=== PATIENT | female | born 1935 | race Caucasian/White ===

== ENCOUNTER 2022-12-27 18:19 | Observation (INO) ==
[2022-12-27 19:27] LABS: BASOPHILS % (AUTO) 0.2 % (0.0-3.0); EOSINOPHILS # (AUTO) 0.2 K/ul (0.0-0.7); EOSINOPHILS % (AUTO) 2.6 % (0.0-7.0); HEMATOCRIT 29.2 % (37.0-47.0); HEMOGLOBIN 8.9 g/dl (12.0-16.0); IMMATURE GRANULOCYTE % (AUTO) 0.5 % (0.0-5.0); LYMPHOCYTES # (AUTO) 1.1 K/uL (0.60-3.4); LYMPHOCYTES % (AUTO) 17.1 (10.0-50.0); MEAN CORPUSCULAR HEMOGLOBIN 26.6 pg (27.0-31.0); MEAN CORPUSCULAR HGB CONC 30.5 (31.8-35.4); MEAN CORPUSCULAR VOLUME 87.4 fl (81.0-99.0); MONOCYTES # (AUTO) 0.7 K/uL (0.4-2.0); MONOCYTES % (AUTO) 10.6 (0-10); NEUTROPHILS # (AUTO) 4.3 K/ul (2.0-6.9); PLATELET COUNT 126 10^3/uL (140-440); RDW COEFFICIENT OF VARIATION 16.7 % (11.6-14.8); RED BLOOD COUNT 3.34 10^6/ul (4.20-5.40); WHITE BLOOD COUNT 6.21 K/ul (4.6-10.2)
[2022-12-27 19:39] LABS: ALANINE AMINOTRANSFERASE 21.2 U/L (0-35); ALBUMIN 3.47 g/dL (3.5-5.0); ALKALINE PHOSPHATASE 81.3 U/L (53-141); ASPARTATE AMINO TRANSFERASE 33.2 U/L (14-36); BILIRUBIN,TOTAL 0.45 mg/dL (0.2-1.3); BLOOD UREA NITROGEN 22.4 mg/dL (7-17); CALCIUM 10.19 mg/dL (8.4-10.2); CARBON DIOXIDE 29.2 mmol/L (22-30.0); CHLORIDE 103.8 mmol/L (98-107); CREATININE 0.94 mg/dL (0.60-1.30); POTASSIUM 4.35 mmol/L (3.5-5.1); SODIUM 136.4 mmol/L (134.5-145); TOTAL PROTEIN 6.22 g/dL (6.3-8.2)
--- NOTE | 2022-12-27 19:42 | CT ---
EXAM: CT SCAN BRAIN WITHOUT CONTRAST HISTORY: Altered mental status COMPARISON: None. FINDINGS: Helically acquired axial images obtained from skull base to the convexities without contra st utilizing 5-mm collimation. Sagittal and coronal reconstructions were imaged and reviewed. The ventricles and CSF spaces are prominent compatible with age appropriate atrophy. There is mild periv entricular hypodensity noted compatible with chronic microvascular disease. There are no acute intra cranial findings. Atherosclerotic changes are seen involving the vertebral and cavernous internal ca rotid arteries. The visualized paranasal sinuses and mastoid air cells are clear. The calvarium is intact. IMPRESSION: No acute intracranial findings. All CT scans are performed using dose optimization techniques as appropriate to the performed exam an d include at least one of the following: Automated exposure control, adjustment of the mA and/or kV according t o size, and the use of iterative reconstruction technique.
[2022-12-27 19:50] LABS: TROPONIN I 0.042 ng/ml (0.0000-0.120)
[2022-12-27 20:20] LABS: BILIRUBIN,URINE Negative (NEGATIVE); CLARITY,URINE Clear (CLEAR); COLOR,URINE Yellow (YELLOW); GLUCOSE, URINE (UA) Negative (NEGATIVE); KETONES,URINE Negative (NEGATIVE); LEUKOCYTE ESTERASE ,URINE Trace (NEGATIVE); NITRITE,URINE Negative (NEGATIVE); PH,URINE 5.5 (5-9); PROTEIN,URINE Negative (NEGATIVE); URINE, BLOOD Negative (NEGATIVE); UROBILINOGEN,URINE 0.2 (0.2)
--- NOTE | 2022-12-27 20:20 | ED.PDOC ---
General ED Provider: Dr. RAHUL DUNCAN MD Chief Complaint: Altered Mental Status Stated Complaint: altered mental status Time Seen by Provider: 12/27/22 18:39 Mode of Arrival: Ambulance Information Source: [facility] Primary Care Provider: BEATRIZ KNOTT MD Nursing and Triage Documentation Reviewed and Agree: Yes Does patient meet sepsis criteria?: No System Inflammatory Response Syndrome: Not Applicable Sepsis Protocol: For patient's 13 years and over: Temp is 96.8 and below OR 101 and greater Pulse >90 BPM Resp >20/minute Acutely Altered Mental Status Are patient's symptoms suggestive of a new infection, such as: -Pneumonia -Skin, Soft Tissue -Endocarditis -UTI -Bone, Joint Infection -Implantable Device -Acute Abdominal Infection -Wound Infection -Meningitis -Blood Stream Catheter Infection -Unknown Neurological Complaint Exam Altered Mental Status Complaint/Exam Current Mental Status: Other Last Known Well: Few days ago Onset: Gradual Duration: 2 days Symptoms Are: Still present Eye Deviation Present: No Character: Reports Lethargy Aggravating: Reports None Alleviating: Reports None Associated Signs and Symptoms: Reports Weakness Review of Systems Review Of Systems Constitutional: Reports Other (unable to obtain) Neurological: Reports Other (lethargy) All Other Systems: Other (unable to obtain) [facility] Medical History (Updated 12/27/22 @ 23:47 by YURY HANNA, DEONTE) Arthritis M19.90 - Unspecified osteoarthritis, unspecified site (ICD-10) Hyperlipidemia E78.5 - Hyperlipidemia, unspecified (ICD-10) Lung cancer C34.90 - Malignant neoplasm of unspecified part of unspecified bronchus or lung (ICD-10) Pacemaker Z95.0 - Presence of cardiac pacemaker (ICD-10) Sick sinus syndrome I49.5 - Sick sinus syndrome (ICD-10) Family History (Updated 12/27/22 @ 23:47 by YURY HANNA RN) Other No known health problems Physical Exam Physical Exam Appearance: Reports Obese and Other (lethargic, opens eyes to verbal stimuli) Ill-appearing: Mild Pain Distress: None Eyes: Reports GRACIELA and EOMI ENT: Reports Ears normal and Nose normal Neck: Supple Respiratory: Reports Airway patent and Breath sounds diminished Cardiovascular: Reports RRR, Pulses normal and No rub GI/: Reports Soft, Nontender, No masses and Bowel sounds normal Musculoskeletal: Reports Other (muscle weakness) Skin: Reports Warm and Dry Neurological: Reports Other (unable to assess) Psychiatric: Reports Not Examined Interpretation EKG Interpretation Time of EKG #1: 18:32 Rate: Ashwin Rhythm: Other (Ventricular-paced rhythm) Ectopy: None EKG Interpretation By: ED Physician Critical Care Note Critical Care Note Total Critical Care Time (mins): 15 Course Course 12/28/22 04:58 12/28/22 04:58 Orders, Labs, Meds: Lab Review 12/27/22 12/27/22 12/27/22 18:39 19:20 19:57 WBC 6.21 RBC 3.34 L Hgb 8.9 L Hct 29.2 L MCV 87.4 MCH 26.6 L MCHC 30.5 L RDW Coeff of Aleksandr 16.7 H Plt Count 126 L Immature Gran % (Auto) 0.5 Neut % (Auto) 69.0 Lymph % (Auto) 17.1 [place] % (Auto) 10.6 H Eos % (Auto) 2.6 Baso % (Auto) 0.2 Neut # (Auto) 4.3 Lymph # (Auto) 1.1 [place] # (Auto) 0.7 Eos # (Auto) 0.2 Baso # (Auto) 0.0 Immature Gran # (Auto) 0.0 Sodium 136.4 Potassium 4.35 Chloride 103.8 Carbon Dioxide 29.2 Anion Gap 7.75 BUN 22.4 H Creatinine 0.94 Estimated GFR (MDRD) 56.00 BUN/Creatinine Ratio 23.82 Glucose 98.0 Calcium 10.19 Total Bilirubin 0.45 AST 33.2 ALT 21.2 Alkaline Phosphatase 81.3 Troponin I 0.042 Total Protein 6.22 L Albumin 3.47 L Globulin 2.75 Albumin/Globulin Ratio 1.26 TSH Urine Color Yellow Urine Clarity Clear Urine pH 5.5 Ur Specific [place] 1.015 Urine Protein Negative Urine Glucose (UA) Negative Urine Ketones Negative Urine Blood Negative Urine Nitrite Negative Urine Bilirubin Negative Urine Urobilinogen 0.2 Ur Leukocyte Esterase Trace H Urine Microscopic RBC 0-2 Urine Microscopic WBC 2-5 Ur Squamous Epith Cells 0-2 12/27/22 20:10 WBC RBC Hgb Hct MCV MCH MCHC RDW Coeff of Aleksandr Plt Count Immature Gran % (Auto) Neut % (Auto) Lymph % (Auto) [place] % (Auto) Eos % (Auto) Baso % (Auto) Neut # (Auto) Lymph # (Auto) [place] # (Auto) Eos # (Auto) Baso # (Auto) Immature Gran # (Auto) Sodium Potassium Chloride Carbon Dioxide Anion Gap BUN Creatinine Estimated GFR (MDRD) BUN/Creatinine Ratio Glucose Calcium Total Bilirubin AST ALT Alkaline Phosphatase Troponin I Total Protein Albumin Globulin Albumin/Globulin Ratio TSH 4.130 Urine Color Urine Clarity Urine pH Ur Specific [place] Urine Protein Urine Glucose (UA) Urine Ketones Urine Blood Urine Nitrite Urine Bilirubin Urine Urobilinogen Ur Leukocyte Esterase Urine Microscopic RBC Urine Microscopic WBC Ur Squamous Epith Cells Orders Category Date Time Status ADMIT OBSERVATION [PLACE PATIENT OBSERVATION] .TO ADMISSION 12/27/22 21:19 Active MEDSURG (MONITORED BED) EKG-(ED ONLY) Stat CARDIO 12/27/22 18:39 Completed ACCUCHECK (MED/SURG, SCU) [BLOOD GLUCOSE MONITORING ( CARE 12/27/22 21:24 Active MED/SURG)] Q1HR GIVE HS SNACK 2100 CARE 12/27/22 21:28 Active INTAKE & OUTPUT Q8HR CARE 12/27/22 21:27 Active TELEMETRY MONITORING TELE CARE 12/27/22 21:20 Active VITAL SIGNS Q8HR CARE 12/27/22 21:27 Completed ADA 1800 FABIOLA. DIET DIETARY 12/28/22 Breakfast Ordered HS SNACK DIETARY 12/27/22 Dinner Ordered ACCUCHECK (ED) [ED ACCUCHECK ASSESSMENT] .ONCE EMERGENCY 12/27/22 21:09 Active IV [ED IV/MEDIPORT/POWERPORT] .ONCE EMERGENCY 12/27/22 18:39 Active Monitor [ED RN PERITONEAL DIALYSIS APPLIED] .ONCE EMERGENCY 12/27/22 18:39 Active CBC W/ AUTO DIFF DAILY@0600 LAB 12/28/22 04:58 Completed CBC W/ AUTO DIFF DAILY@0600 LAB 12/29/22 06:00 Ordered CBC W/ AUTO DIFF Stat LAB 12/27/22 19:20 Completed CMP [COMPREHENSIVE METABOLIC PANEL] Stat LAB 12/27/22 18:39 Completed COMPREHENSIVE METABOLIC PANEL DAILY@0600 LAB 12/28/22 04:58 Completed COMPREHENSIVE METABOLIC PANEL DAILY@0600 LAB 12/29/22 06:00 Ordered TROPONIN I Stat LAB 12/27/22 18:39 Completed TSH [THYROID STIMULATING HORMONE] Stat LAB 12/27/22 20:10 Completed URINALYSIS C & S IF INDICATED Stat LAB 12/27/22 19:57 Completed 0.9 % Sodium Chloride [Saline Flush] Meds 12/27/22 18:39 Active 1 syr IVF PRN PRN Acetaminophen [Tylenol] Meds 12/27/22 21:24 Active 650 mg PO Q4H PRN Dextrose 5 % and 0.9 % NaCl [Dextrose 5%-Ns IV Solution Meds 12/27/22 21:24 Active ] 1,000 ml IV 100 mls/hr Dextrose 5 %-Water [Dextrose 5%-Water IV Soln] 500 ml Meds 12/27/22 21:09 Active IV 30 mls/hr Dextrose 50 % in Water [Dextrose 50%-Water Abboject] Meds 12/27/22 21:24 Active 50 ml IVP ONCE PRN Dextrose 50 % in Water [Dextrose 50%-Water Abboject] Meds 12/27/22 21:18 Discontinued 50 ml IVP ONCE STA Ondansetron HCl/Pf [Zofran 4 mg/2 ml] Meds 12/27/22 21:24 Active 4 mg IVP Q6H PRN Sodium Chloride 0.9% [Sodium Chloride] 500 ml Meds 12/27/22 20:[address] HEAD W/O CONTRAST Stat RADS 12/27/22 18:39 Completed CXR [CHEST, 1V AP ONLY] Stat RADS 12/27/22 18:39 Completed Medications Generic Name Dose Route Start Last Admin Trade Name Freq PRN Reason Stop Dose Admin Acetaminophen 650 mg 12/27/22 21:24 Acetaminophen 325 Mg Tablet PO Q4H PRN Mild Pain Dextrose 50 ml 12/27/22 21:24 Dextrose 50 % In Water 50 Ml Disp.Syrin IVP ONCE PRN Unconscious Hypoglycemia Protocol Dextrose 500 mls @ 30 mls/hr 12/27/22 21:09 12/27/22 21:19 Dextrose 5%-Water Iv Soln IV 12/28/22 13:48 30 mls/hr .[id number] STA Administration Dextrose/Sodium Chloride 1,000 mls @ 100 mls/hr 12/27/22 21:24 Dextrose 5%-Ns Iv Solution IV 12/28/22 07:23 .Q10H STA Ondansetron HCl 4 mg 12/27/22 21:24 Ondansetron Hcl/Pf 4 Mg/2 Ml Sdv IVP Q6H PRN Nausea / Vomiting Sodium Chloride 1 syr 12/27/22 18:39 0.9% Sodium Chloride 10 Ml Disp.Syrin IVF PRN PRN To flush IV Sodium Chloride 1 syr 12/28/22 05:00 12/28/22 05:44 0.9% Sodium Chloride 10 Ml Disp.Syrin IVF 1 syr Q8HR ISAAC Administration Discontinued Medications Generic Name Dose Route Start Last Admin Trade Name Freq PRN Reason Stop Dose Admin Dextrose 50 ml 12/27/22 21:18 12/27/22 21:22 Dextrose 50 % In Water 50 Ml Disp.Syrin IVP 12/27/22 21:19 50 ml ONCE STA Administration Sodium Chloride 500 mls @ 500 mls/hr 12/27/22 20:31 Sodium Chloride IV 12/27/22 21:30 BOLUS STA Vital Signs: Temp Pulse Resp BP Pulse Ox 12/27/22 18:20 97.7 F 65 20 126/53 L 98 87 yo female BIBA from halfway for AMS. As per nursing staff at the facility patient has been more lethargic and decreased oral intake for the last few days. blood sugar was 52, given D50 and blood sugar improved to 287. As per paramedics patient was also hypotensive but BP improved with fluid bolus BP now 126/53. Patient opens her eyes to verbal stimuli, able to tell her name.CBC showed hgb of 8.9 WBC 6.2 UA no UTI blood sugar 98. patient's blood sugar then dropped below 50 she was given another amp of D50. and startedon d5w 30 ml/h. Orderd TSH and discussed case with hospitalist Srinivas Krishna to admit the patient under observation for hypoglycemia and she accepted the patient to be admitted under her services. Discharge Plan Discharge Patient Disposition: ADMITTED INPATIENT Discharge Problem: Altered mental status, Hypoglycemia due to insulin Did you review [place] [employer]CHE[employer]ICIAN for ALL controlled substances?: Not Applicable ED Provider: RAHUL DUNCAN Condition: Poor Physician Progress Note: []
[2022-12-27 20:25] LABS: SQUAMOUS EPITHELIAL CELL,UR 0-2 (0-5); URINE RBC, MICROSCOPIC 0-2 (0-2)
[2022-12-27] MEDS ORDERED: SODIUM CHLORIDE 500 ML IV STA (20:31)
--- NOTE | 2022-12-27 20:31 | DI ---
EXAM: FRONTAL CHEST HISTORY: Shortness of breath FINDINGS: No comparison. Cardiomegaly, sternotomy wires, atherosclerotic disease and pacemaker unit are noted. There is at least mild central infiltrate suggesting vascular congestion and interstitia l edema. No definite consolidated pneumonia. There is no pneumothorax or visible pleural fluid. IMPRESSION: 1. Cardiomegaly, vascular congestion and mild interstitial edema.
[2022-12-27] MEDS ORDERED: DEXTROSE 5%-WATER IV SOLN 500 ML IV STA (21:09)
[2022-12-27] MEDS ORDERED: DEXTROSE 50%-WATER ABBOJECT IVP STA (21:18)
[2022-12-27] MEDS ORDERED: TYLENOL PO PRN (21:24)
[2022-12-27] MEDS ORDERED: DEXTROSE 50%-WATER ABBOJECT IVP PRN (21:24)
[2022-12-27] MEDS ORDERED: DEXTROSE 5%-NS IV SOLUTION 1,000 ML IV STA (21:24)
[2022-12-27] MEDS ORDERED: ZOFRAN 4 MG/2 ML IVP PRN (21:24)
[2022-12-27 23:37] VITALS: BMI 23.5
[2022-12-28 05:48] LABS: BASOPHILS % (AUTO) 0.2 % (0.0-3.0); EOSINOPHILS # (AUTO) 0.1 K/ul (0.0-0.7); EOSINOPHILS % (AUTO) 1.8 % (0.0-7.0); HEMATOCRIT 27.3 % (37.0-47.0); HEMOGLOBIN 8.5 g/dl (12.0-16.0); IMMATURE GRANULOCYTE % (AUTO) 0.4 % (0.0-5.0); LYMPHOCYTES # (AUTO) 0.9 K/uL (0.60-3.4); LYMPHOCYTES % (AUTO) 16.2 (10.0-50.0); MEAN CORPUSCULAR HEMOGLOBIN 26.3 pg (27.0-31.0); MEAN CORPUSCULAR HGB CONC 31.1 (31.8-35.4); MEAN CORPUSCULAR VOLUME 84.5 fl (81.0-99.0); MONOCYTES # (AUTO) 0.5 K/uL (0.4-2.0); MONOCYTES % (AUTO) 9.9 (0-10); NEUTROPHILS # (AUTO) 3.9 K/ul (2.0-6.9); NEUTROPHILS % (AUTO) 71.5 % (42.2-75.2); PLATELET COUNT 129 10^3/uL (140-440); RDW COEFFICIENT OF VARIATION 16.8 % (11.6-14.8); RED BLOOD COUNT 3.23 10^6/ul (4.20-5.40); WHITE BLOOD COUNT 5.44 K/ul (4.6-10.2)
[2022-12-28 05:54] LABS: ALANINE AMINOTRANSFERASE 21.3 U/L (0-35); ALBUMIN 3.39 g/dL (3.5-5.0); ASPARTATE AMINO TRANSFERASE 33.2 U/L (14-36); BILIRUBIN,TOTAL 0.42 mg/dL (0.2-1.3); BLOOD UREA NITROGEN 22.4 mg/dL (7-17); CALCIUM 9.83 mg/dL (8.4-10.2); CARBON DIOXIDE 25.8 mmol/L (22-30.0); CREATININE 0.86 mg/dL (0.60-1.30); GLUCOSE 135.3 mg/dL (74-106); POTASSIUM 4.66 mmol/L (3.5-5.1); SODIUM 134.2 mmol/L (134.5-145); TOTAL PROTEIN 6.17 g/dL (6.3-8.2)
[2022-12-28] MEDS ORDERED: SODIUM CHLORIDE 1,000 ML IV ONE (09:52)
[2022-12-28] MEDS ORDERED: MUCINEX PO SCH (10:00)
[2022-12-28] MEDS ORDERED: ELIQUIS PO SCH (10:00)
[2022-12-28 10:37] VITALS: BP 144/52; RESP 20; TEMP 96.5
--- NOTE | 2022-12-28 10:40 | PCM.SS ---
Provider Provider: DENVER CHOWDHURY, [facility] Admission Date Admission Date: 12/27/22 Discharge Date Discharge Date: 12/28/22 Primary Care Physician Primary Care Physician: BEATRIZ KNOTT MD Chief Complaint Reason For Visit: HYPOGLYCEMIA History of Present Illness History of Present Illness: Admitted 12/27/22 22:03, this 87 year old /WHITE/F presented to the ER by EMS from local group home with complaints of altered mental status. EMS found patient's blood sugar to be 52. She was given an amp of D50 on arrival to the ER. Blood sugar increased to 98 and patient became more awake. Blood sugar was rechecked and dropped below 50 again. She was given an additional amp of D50 and started on D5 at 30 mL/hr. patient has a history of diabetes and takes Lantus and sliding scale. alf reported patient did not have a meal yesterday and was lethargic. Patient has a history of dementia and is unable to provide HPI. [facility] Medical History Arthritis M19.90 - Unspecified osteoarthritis, unspecified site (ICD-10) Hyperlipidemia E78.5 - Hyperlipidemia, unspecified (ICD-10) Lung cancer C34.90 - Malignant neoplasm of unspecified part of unspecified bronchus or lung (ICD-10) Pacemaker Z95.0 - Presence of cardiac pacemaker (ICD-10) Sick sinus syndrome I49.5 - Sick sinus syndrome (ICD-10) Family History Other No known health problems Medications Mecications: Medications at Discharge (Home Meds & RX) acetaminophen 325 mg tablet 650 mg PO Q4-6H PRN PAIN/FEVER 12/27/22 albuterol sulfate 90 mcg/actuation aerosol inhaler 2 inh inhalation Q4H PRN SOB 12/27/22 apixaban 5 mg tablet (Eliquis) 5 mg PO Q12H 12/27/22 atorvastatin 40 mg tablet 40 mg PO QPM 12/27/22 carvedilol 25 mg tablet 25 mg PO BID 12/27/22 diltiazem HCl 120 mg capsule,extended release 24 hr 120 mg PO QAM 12/27/22 famotidine 20 mg tablet 20 mg PO BID 12/27/22 furosemide 20 mg tablet 20 mg PO QAM 12/27/22 guaifenesin 600 mg tablet, extended release 12 hr 1,200 mg PO Q12H 12/27/22 insulin detemir U-100 100 unit/mL subcutaneous solution (Levemir U-100 Insulin) 50 unit subcut QAM 12/27/22 insulin lispro 100 unit/mL subcutaneous solution (Humalog U-100 Insulin) 1 sliding scale dose subcut .WITH MEALS PRN ELEVATED BLOOD SUGAR 12/27/22 ipratropium 0.5 mg-albuterol 3 mg (2.5 mg base)/3 mL nebulization soln 3 ml inhalation Q6H PRN SOB/WHEEZING 12/27/22 latanoprost 0.005 % eye drops 1 drp BOTHEYES DAILY 12/27/22 loperamide 2 mg capsule 4 mg PO BID 12/27/22 loperamide 2 mg capsule (Anti-Diarrheal (loperamide)) 2 mg PO Q4H PRN LOOSE STOOLS 12/27/22 losartan 25 mg tablet 25 mg PO DAILY 12/27/22 magnesium oxide 400 mg (241.3 mg magnesium) tablet (MagOx) 400 mg PO DAILY 12/27/22 nitroglycerin 0.4 mg sublingual tablet 0.4 mg sublingual Q5M PRN chest pain 12/27/22 ofloxacin 0.3 % eye drops 2 drp BOTHEYES QID 12/27/22 ondansetron HCl 4 mg tablet 4 mg PO Q8H PRN nausea 12/27/22 sertraline 25 mg tablet 25 mg PO DAILY 12/27/22 spironolactone 25 mg tablet (Aldactone) 25 mg PO DAILY 12/27/22 Allergies Allergies Allergy/AdvReac Type Severity Reaction Status Date / Time DANNIE Inhibitors AdvReac Cough Verified 12/27/22 18:43 Review of Systems Constitutional: Reports No symptoms Head: Reports Normocephalic and Atraumatic Eyes: Reports No symptoms Ears: Reports No symptoms Nose: Reports No symptoms Mouth: Reports No symptoms Throat: Reports No symptoms Cardiovascular: Reports No symptoms Respiratory: Reports No symptoms Gastrointestinal: Reports No symptoms Genitourinary: Reports No Symptoms Musculoskeletal: Reports No symptoms Endocrine: Reports No symptoms Hematology: Reports No symptoms Immunology: Reports No symptoms Neurological: Reports Other (lethargic on arrival to ER ) Psychiatric: Reports No symptoms Physical Examination Appearance: Positive Well-nourished and No Apparent Distress Head: Positive Normocephalic and Atraumatic Eyes: Positive GRACIELA ENT: Positive Nares Normal and Oropharynx Normal Neck: Positive Supple and Non-Tender Heart: Positive RRR and No Murmurs Respiratory: Positive Airway patent, Breath Sounds Clear, Bilaterally, Breath Sounds Equal and Respirations Nonlabored GI/: Positive Soft, Nontender, Bowel sounds normal, No Distention, No masses and No Organomegaly Extremities: Positive Pedal Pulses Palpable Bilaterally Neurological: Positive Sensation Intact, Motor Intact, Alert and Disoriented Psychiatric: Positive Normal Judgement, Normal Insight, Affect Appropriate and Mood Appropriate Vital Signs (Last 4 Hours) Vital Signs Last 4 Hours: Vital Signs: Last 4 Hours 12/28/22 07:00 12/28/22 08:00 12/28/22 10:00 Temperature 96.5 F L Temperature Source Temporal Artery Scan Pulse Rate 66 Pulse Rate [Apical] 62 Respiratory Rate 18 20 Blood Pressure 144/52 H Blood Pressure Mean 82 Blood Pressure Location Left Arm Blood Pressure Position Supine O2 Sat by Pulse Oximetry 98 Oxygen Delivery Method Room Air Nasal Cannula Oxygen Flow Rate 2 2 Telemetry Type Remote Telemetry Telemetry Monitoring Continues Telemetry Heart Rate 69 EKG QRS Interval 0.07 Telemetry Strip Reading Vpaced Labs This Visit Labs This Visit: Labs This Visit 12/27/22 12/27/22 12/27/22 18:39 19:20 19:57 WBC 6.21 RBC 3.34 L Hgb 8.9 L Hct 29.2 L MCV 87.4 MCH 26.6 L MCHC 30.5 L RDW Coeff of Aleksandr 16.7 H Plt Count 126 L Immature Gran % (Auto) 0.5 Neut % (Auto) 69.0 Lymph % (Auto) 17.1 [place] % (Auto) 10.6 H Eos % (Auto) 2.6 Baso % (Auto) 0.2 Neut # (Auto) 4.3 Lymph # (Auto) 1.1 [place] # (Auto) 0.7 Eos # (Auto) 0.2 Baso # (Auto) 0.0 Immature Gran # (Auto) 0.0 Sodium 136.4 Potassium 4.35 Chloride 103.8 Carbon Dioxide 29.2 Anion Gap 7.75 BUN 22.4 H Creatinine 0.94 Estimated GFR (MDRD) 56.00 BUN/Creatinine Ratio 23.82 Glucose 98.0 Calcium 10.19 Total Bilirubin 0.45 AST 33.2 ALT 21.2 Alkaline Phosphatase 81.3 Troponin I 0.042 Total Protein 6.22 L Albumin 3.47 L Globulin 2.75 Albumin/Globulin Ratio 1.26 TSH Urine Color Yellow Urine Clarity Clear Urine pH 5.5 Ur Specific [place] 1.015 Urine Protein Negative Urine Glucose (UA) Negative Urine Ketones Negative Urine Blood Negative Urine Nitrite Negative Urine Bilirubin Negative Urine Urobilinogen 0.2 Ur Leukocyte Esterase Trace H Urine Microscopic RBC 0-2 Urine Microscopic WBC 2-5 Ur Squamous Epith Cells 0-2 12/27/22 12/28/22 20:10 04:58 WBC 5.44 RBC 3.23 L Hgb 8.5 L Hct 27.3 L MCV 84.5 MCH 26.3 L MCHC 31.1 L RDW Coeff of Aleksandr 16.8 H Plt Count 129 L Immature Gran % (Auto) 0.4 Neut % (Auto) 71.5 Lymph % (Auto) 16.2 [place] % (Auto) 9.9 Eos % (Auto) 1.8 Baso % (Auto) 0.2 Neut # (Auto) 3.9 Lymph # (Auto) 0.9 [place] # (Auto) 0.5 Eos # (Auto) 0.1 Baso # (Auto) 0.0 Immature Gran # (Auto) 0.0 Sodium 134.2 L Potassium 4.66 Chloride 104.0 Carbon Dioxide 25.8 Anion Gap 9.06 BUN 22.4 H Creatinine 0.86 Estimated GFR (MDRD) 63.00 BUN/Creatinine Ratio 26.04 Glucose 135.3 H Calcium 9.83 Total Bilirubin 0.42 AST 33.2 ALT 21.3 Alkaline Phosphatase 82.0 Troponin I Total Protein 6.17 L Albumin 3.39 L Globulin 2.78 Albumin/Globulin Ratio 1.21 TSH 4.130 Urine Color Urine Clarity Urine pH Ur Specific [place] Urine Protein Urine Glucose (UA) Urine Ketones Urine Blood Urine Nitrite Urine Bilirubin Urine Urobilinogen Ur Leukocyte Esterase Urine Microscopic RBC Urine Microscopic WBC Ur Squamous Epith Cells Imaging Imaging: EXAM: CT SCAN BRAIN WITHOUT CONTRAST HISTORY: Altered mental status COMPARISON: None. FINDINGS: Helically acquired axial images obtained from skull base to the convexities without contrast utilizing 5-mm collimation. Sagittal and coronal reconstructions were imaged and reviewed. The ventricles and CSF spaces are prominent compatible with age appropriate atrophy. There is mild periventricular hypodensity noted compatible with chronic microvascular dis ease. There are no acute intracranial findings. Atherosclerotic changes are seen involving the vertebral and cavernous internal carotid arteries. The visualized paranasal sinuses and mastoid air cells are clear. The calvarium is intact. IMPRESSION: No acute intracranial findings. Review Review Statement: I have independently reviewed and interpreted the labs/EKGs/imaging that were ordered by the ER provider. I have reviewed all outside records that are available currently in our EMR including imaging/notes/labs from previous visits. Plan Reccomendations/Plan: 1. Hypoglycemia - received 1L of D5NS@100mL/hr, hourly blood sugars, held ins ulin, ADA diet Blood sugars improved overnight. Adjusting home long acting insulin from 50 units to 40 units daily. Encourage group home to check glucose and feed patient prior to administration. 2. Hypotension - resolved, held night time BP medications, received IV fluids, encourage oral hydration upon discharge 3. Atrial fibrillation - chronic, not in RVR, continue home medications 4. Hypertension - chronic, continue home medications 5. CHF - chronic, not in exacerbation, continue home medications Additional Planning: Case discussed with ED Physician, Dr. Kay. DVT Prophylaxis: Eliquis Disposition: Admit to: Med/Surg Observation If patient discharged with Left Ventricular Systolic Dysfunction: no Discharged with a beta fatoumata? [] If no, why not? [] Discharged with an dannie/arb? [] If no, why not? [] Review With Patient Reviewed with Patient and Family: Patient and family have been counseled on condition and care plan and have no immediate questions. I have personally discussed and reviewed the patient's visit/current labs/imaging/decision making with Dr. Mira Ferrera, my supervising attending. Total number of minutes spent with patient 85 min. More than 50% of the time spent with this patient was devoted to counseling and coordination of care. Time of Admission:12/27/22 22:03 Time of Discharge: 12/28/2022 11:00 Discharge Plan Discharge Activity Restrictions/Additional Instructions: Activity as tolerated. Decrease determir insulin from 50 units to 40 units. Feed patient prior to administration of insulin and check blood sugar. Follow-up with PCP this week. Instructions: Hypoglycemia in a Person with Diabetes (GEN) Patient Disposition: TRANSFER SNF Prescriptions: Continued acetaminophen 325 mg tablet 650 mg PO Q4-6H PRN (Reason: PAIN/FEVER) albuterol sulfate 90 mcg/actuation HFA aerosol inhaler 2 inh INHALATION Q4H PRN (Reason: SOB) Rx Instructions: WITH SPACER spironolactone [Aldactone] 25 mg tablet 25 mg PO DAILY atorvastatin 40 mg tablet 40 mg PO QPM carvedilol 25 mg tablet 25 mg PO BID diltiazem HCl 120 mg capsule,extended release 24hr 120 mg PO QAM famotidine 20 mg tablet 20 mg PO BID guaifenesin 600 mg tablet extended release 12hr 1,200 mg PO Q12H insulin lispro [Humalog U-100 Insulin] 100 unit/mL solution 1 sliding scale dose subcut .WITH MEALS PRN (Reason: ELEVATED BLOOD SUGAR) Rx Instructions: <60 NOTIFY 0-149=0 UNITS 150-200= 2 UNITS 201-250= 4 UNITS 251-300= 6 UNITS 301-350= 8 UNITS 351-400= 10 UNITS >400 GIVE 10 UNITS AND CALL loperamide 2 mg capsule 4 mg PO BID ipratropium-albuterol 0.5 mg-3 mg(2.5 mg base)/3 mL solution for nebulization 3 ml INHALATION Q6H PRN (Reason: SOB/WHEEZING) furosemide 20 mg tablet 20 mg PO QAM latanoprost 0.005 % drops 1 drp BOTHEYES DAILY loperamide [Anti-Diarrheal (loperamide)] 2 mg capsule 2 mg PO Q4H PRN (Reason: LOOSE STOOLS) Rx Instructions: administer after each loose stool until symptoms controlled; do not exceed 8 mg per 24 hrs losartan 25 mg tablet 25 mg PO DAILY magnesium oxide [MagOx] 400 mg (241.3 mg magnesium) tablet 400 mg PO DAILY nitroglycerin 0.4 mg tablet, sublingual 0.4 mg sublingual Q5M PRN (Reason: chest pain) Rx Instructions: 1 TAB SL Q5 MIN X3 NO MORE THAN 3 DOSES IN 15 MINUTES ofloxacin 0.3 % drops 2 drp BOTHEYES QID Rx Instructions: BID X5 DAYS ondansetron HCl 4 mg tablet 4 mg PO Q8H PRN (Reason: nausea) sertraline 25 mg tablet 25 mg PO DAILY Eliquis 5 mg tablet 5 mg PO Q12H Changed Levemir U-100 Insulin 100 unit/mL solution 40 unit SUBCUT QAM Qty: 100 0RF Did you review [place] 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
[2022-12-28] MEDS ORDERED: LIPITOR PO SCH (17:00)
[2022-12-28] MEDS ORDERED: COREG PO SCH (17:00)
[2022-12-28] MEDS ORDERED: PEPCID PO SCH (17:00)
[2022-12-28] MEDS ORDERED: IMODIUM PO SCH (21:00)
[2022-12-29] MEDS ORDERED: LASIX TAB PO SCH (06:30)
[2022-12-29] MEDS ORDERED: COZAAR PO SCH (09:00)
[2022-12-29] MEDS ORDERED: CARDIZEM CD PO SCH (09:00)
[2022-12-29] MEDS ORDERED: MAG-OX PO SCH (09:00)
[2022-12-29] MEDS ORDERED: ZOLOFT PO SCH (09:00)
[2022-12-29] MEDS ORDERED: ALDACTONE PO SCH (09:00)
== END 2022-12-28 13:13 ==
LOC: MEDSURG B 18:19 → ED 18:19 → MEDSURG B 22:57
PROVIDERS: ADMIT Hospitalist; ATTEND Nurse Practitioner Family
DX: I48.91 Unspecified atrial fibrillation; I49.5 Sick sinus syndrome; E78.5 Hyperlipidemia, unspecified; R53.1 Weakness; Z79.4 Long term (current) use of insulin; Z51.81 Encounter for therapeutic drug level monitoring; I50.9 Heart failure, unspecified; Z95.0 Presence of cardiac pacemaker; Z79.899 Other long term (current) drug therapy; R41.82 Altered mental status, unspecified; R03.1 Nonspecific low blood-pressure reading; E16.0 Drug-induced hypoglycemia without coma; M19.90 Unspecified osteoarthritis, unspecified site; I11.0 Hypertensive heart disease with heart failure; Z79.01 Long term (current) use of anticoagulants; C34.90 Malignant neoplasm of unspecified part of unspecified bronchus or lung